=== PATIENT | male | born 1960 | race Caucasian/White ===

== ENCOUNTER → 2017-09-14 12:36 | Outpatient (CLI) | payer MEDICARE, SELFPAY ==
--- NOTE | 2017-09-14 12:40 | CDU_ITS ---
Reason For Study: carotid stenosis Rt. Velocities/BP Lt. Velocities/BP Prox CCA 101/24.0 cm/sec. Prox CCA 114/25.2 cm/sec. Mid CCA 79.2/23.5 cm/sec. Mid CCA 79.7/19.3 cm/sec. Dist CCA 79.7/19.9 cm/sec. Dist CCA 71.5/22.3 cm/sec. Prox ICA 61.6/12.3 cm/sec. Prox ICA 55.1/20.5 cm/sec. Mid ICA 80.3/28.7 cm/sec. Mid ICA 67.4/26.4 cm/sec. Dist ICA 75.0/32.8 cm/sec. Dist ICA 69.8/30.5 cm/sec. Rt. ICA/CCA = 1.0. Lt. ICA/CCA = .9. Prox ECA 128/20.4 cm/sec. Prox ECA 156/23.6 cm/sec. Rt. Vert. 56.3/15.2 cm/sec. Lt. Vert. 35.0/10.5 cm/sec. Right Extracranial There is intimal thickening but no significant atherosclerotic plaque noted in the right common carotid artery. There is intimal thickening but no significant atherosclerotic plaque noted in the right internal carotid artery. There is homogeneous, smooth atherosclerotic plaque noted in the right external carotid artery. Antegrade flow is noted in the right vertebral artery. Left Extracranial There is intimal thickening but no significant atherosclerotic plaque noted in the left common carotid artery. There is heterogeneous, irregular atherosclerotic plaque noted in the left internal carotid artery. There is intimal thickening but no significant atherosclerotic plaque noted in the left external carotid artery. Antegrade flow is noted in the left vertebral artery. Procedure Carotid Duplex [id number]. The exam was diagnostic. Exam performed in department. Interpretation Summary Post surgical changes right carotid bulb and internal carotid with <50% stenosis. Mild disease right external carotid Irregular calcific plague at the left carotid bulb and internal carotid with <50% stenosis. Patent and antegrade vertebrals bilaterally Ordering Physician: Hamlet Caballero Performed By: Leonard Castellanos RVT
== END ==
PROVIDERS: Family Provider Internal Medicine; PCP Internal Medicine; Visit Provider Surgery
DX: I65.23 Occlusion and stenosis of bilateral carotid arteries (principal)
CPT/HCPCS: 93880

== ENCOUNTER 2021-07-23 10:00 | Outpatient (RCR) | payer MEDICARE, SELFPAY ==
[2021-07-02 09:58] VITALS: BP 174/93; PULSE 87; TEMP 36.1
--- NOTE | 2021-07-02 12:40 | PCM.WC.HP ---
History of Present Illness Date of Service: 07/02/21 Chief Complaint: Left ankle ulcer History of Wound: The patient is a pleasant 61-year-old male who [facility] for an initial evaluation of a left lateral ankle ulcer. He also has a healing area of the left hip that he would like to be addressed. He has a past medical history significant for type 2 diabetes mellitus (insulin-dependent), severe peripheral arterial disease (status post left femoral artery angioplasty 07/2016), stroke, carotid stenosis status post right carotid endarterectomy, hepatitis C, and depression. He smokes approximately 2 packs/day. He states that this wound has been present on his left lateral ankle for approximately 1 year. He has not been performing any dressing changes to the wound. He washes the wound in the shower with his regular body wash. He sometimes covers the wound with a Band-Aid, though he has not recently done so. He has not had any recent drainage from the wound. At times he reports that the wound is very red and swollen and painful, though this has not been the case in recent months. The patient denies fever, chills, general malaise, or poor appetite. The patient has not had purulent/malodorous drainage from affected area. His last A1c was in May 2021, and was around 7%. Per his note from Dr. Caballero (vascular), the patient had arterial studies in July 2017 which revealed The right DP and PT index at rest 0.7 and 0.83 with biphasic DP and biphasic PT waveforms. The left lower extremity has indices of 1.05 and 0.82 for the DP and PT. The left DP is biphasic in the PT triphasic. He reports having small wounds of the left hip, which become very tender and painful. He has no active wounds of the left hip at this time. 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 Chronic ulcer of left ankle with fat layer exposed Depression Dermatitis Diabetes mellitus Diabetic ulcer of left ankle associated with diabetes mellitus due to underlying condition, with fat layer exposed Hepatitis C Hypoglycemia PAD (peripheral artery disease) Stroke Tobacco abuse Vasovagal syncope Home Medications aspirin 81 mg PO DAILY@0800 10/24/13 [History Last Taken Unknown] insulin glargine 40 units SC DAILY 10/24/13 [History Last Taken Unknown] lisinopril 2.5 mg PO DAILY 10/24/13 [History Last Taken Unknown] sildenafil 100 mg PO DAILY PRN 10/24/13 [History Last Taken Unknown] simvastatin 40 mg PO DAILY 10/24/13 [History Last Taken Unknown] omega-3 fatty acids-fish oil 1 ea PO DAILY 08/19/16 [History Last Taken Unknown] acetaminophen 650 mg PO Q6H PRN PRN tab 08/26/16 [Rx Last Taken Unknown] insulin aspart U-100 12 units SC TIDCM #0 08/26/16 [Rx Last Taken Unknown] triamcinolone acetonide 1 applic TOPICAL BID #15 g 07/02/21 [Rx Last Taken Unknown] Allergy/AdvReac Type Severity Reaction Status Date / Time No Known Allergies Allergy Verified 03/06/18 13:18 Social History (Updated 03/06/18 @ 14:[address] Hamlet Caballero MD) Smoking Status: Current every day smoker ROS Constitutional Constitutional: Denies chills, fever(s) or night sweats Eyes Eyes: Denies change in vision or double vision ENT HEENT: Denies lip swelling or tongue swelling Cardiovascular Cardiovascular: Reports claudication and cold extremities; Denies chest pain, leg edema or palpitations Respiratory/Chest Respiratory/Chest: Reports cough and shortness of breath with exertion; Denies shortness of breath at rest or wheezing Gastrointestinal Gastrointestinal: Denies diarrhea, nausea or vomiting Genitourinary Genitourinary: Denies dysuria or hematuria Musculoskeletal Musculoskeletal: Reports numbness and tingling; Denies abnormal gait, extremity pain or muscle weakness Integumentary Integumentary: Reports wounds; Denies rash Neurologic Neurologic: Denies abnormal gait, abnormal speech or focal weakness Endocrine Endocrinology: Denies cold intolerance, heat intolerance, polydipsia or polyuria Hematologic/Lymphatic Hematologic/Lymphatic: Denies easy bleeding or easy bruising Vital Signs Vital Signs Vital Signs: 07/02/21 09:58 Temperature 97.0 F L Temperature Source Temporal Pulse Rate 87 Blood Pressure 174/93 H Blood Pressure Mean 120 Blood Pressure Source Monitor Blood Pressure Position Sitting Blood Pressure Location Right Arm Physical Exam Const alert, no apparent distress and healthy appearing General Appearance: cooperative, comfortable and well kempt HEENT Head and Scalp: normocephalic and atraumatic Eyes EOMs intact bilaterally Neck supple and no JVD Resp normal respiratory effort, normal air movement and no use of accessory muscles Auscultation: clear to auscultation bilaterally; Negative for crackles, rales, rhonchi or wheezes Cardio regular rate and regular rhythm GI normal to inspection, nondistended, normoactive bowel sounds Extremity no joint enlargement, no calf tenderness and no pedal edema General Extremity: clubbing, cyanosis and pulses abnormal; Negative for edema Peripheral Pulses: Negative for dorsalis pedis pulses present Skin Wounds: wounds noted No malodorous Wound Narrative: Left lateral ankle ulcer with subcutaneous layer exposed. Moderate amount of slough and devitalized tissue present. No tunneling, undermining, or probing to bone. No purulent or malodorous drainage. No periulcer erythema or warmth. Cluster of dry, flaky skin on the left hip, with no open wounds/lesions. Mild erythema present. Mild tenderness to palpation. Neuro oriented x3, moves all extremities and no focal motor deficits Psych mental status grossly normal, cooperative and affect normal Debridement Note Debridement Note Wound debrided: Left lateral ankle Laterality: Left Type of Debridement: Excisional debridement Anesthesia Used: 4% Lidocaine Solution and Cetacaine Depth: in the subcutaneous layer Percentage of wound debrided: 100 Instrument Used: 3mm curette Tissue Removed: Slough and devitalized tissue Severity: Fat Layer Exposed Amount of bleeding with debridement: Mild Bleeding Controlled with: Pressure Patient tolerated procedure: Patient tolerated procedure well Post-Debridement Measurements and Additional Note: Post-Debridement Measurements/Treatment - Nurse 1 - General Ulcer Assessment Start: 07/02/21 09:58 Freq: Status: Active Protocol: JESSICA Activity Type Activity Date Activity User E-Sign Co-Sign Detail Recorded Client Recorded Date Recorded By Document 07/02/21 09:58 ANA LAURA [id number] 07/02/21 10:02 ANA LAURA 07/02/21 09:58 - Today's Visit Information Type of service Initial Visit Arrival Mode Ambulatory Patient Identification Verified (Name & Yes ) Finger Stick Blood Sugar(mg/dl) (if 176 indicated): Blood Sugar Stated by Patient Vital Signs Temperature (97.8 F-99.1 F) 97.0 F L Temperature Source Temporal Pulse Rate (60-100) 87 Pulse Location Monitor Blood Pressure (90/60-120/80) 174/93 H Blood Pressure Mean 120 Source Monitor Position Sitting Blood Pressure Location Right Arm History Since Last Visit- (Skip if this is Patient's initial visit) Have you changed medications since your No last visit? Any new allergies or adverse reactions No Had a fall/change in ADL's that may No increase risk of falls Signs or symptoms of abuse and/or No neglect since last visit Have you been in the hospital since your No last visit? Has dressing in place as prescribed No Has compression in place as prescribed N/A Has offloadiing in place as prescribed N/A Experienced any changes in pain level or No management Left Footwear Regular Shoe Right Footwear Regular Shoe Pain Scale: 0-10 Numeric Is Patient Pain Free? Yes MASHA - Nurse 1 - General Ulcer Measurement Start: 07/02/21 09:58 Freq: Status: Active Protocol: Activity Type Activity Date Activity User E-Sign Co-Sign Detail Recorded Client Recorded Date Recorded By Document 07/02/21 09:58 ANA LAURA [id number] 07/02/21 10:02 ANA LAURA 07/02/21 09:58 Wound Center Nurse 1 #1 Left Lateral Ankle -Current Size (cm) - Length 0.5 -Current Size (cm) - Width 0.8 -Current Size (cm) - Depth 0.1 -Total Square Cm 0.40 -Exudate Amt None Present -Wound Margin Distinct, Outline Attached -Granulation Amt Small (1-33%) -Granulation Quality [place] -Necrosis Amt None Present (0 %) -Texture (Kristi-wound Skin Appearance) Assessed, Scarring -Moisture (Kristi-wound Skin Appearance) Assessed,Dry/ Scaly -Color (Kristi-wound Skin Appearance) No Abnormality, Assessed -Temperature (Kristi-wound Skin No Abnormality Appearance) (Pt Warm) -Tenderness on Palpation (Kristi-wound No Skin Appearance) -Ulcer Cleansing Rinsed/ Irrigated with Saline -Foul Odor after Cleansing No -Anesthetic Used 5% Lidocaine Gel Right Calf (cm) 40 Right Ankle (cm) 23.2 Left Calf (cm) 39 Left Ankle (cm) 24 MASHA - Nurse 3 - General Ulcer D/C NN Start: 07/02/21 09:58 Freq: Status: Active Protocol: Activity Type Activity Date Activity User E-Sign Co-Sign Detail Recorded Client Recorded Date Recorded By Document 07/02/21 10:46 NOMAN [id number] 07/02/21 10:47 NOMAN 07/02/21 10:46 Wound Care Nurse 3 #1 Left Lateral Ankle -Ulcer Cleansing Rinsed/ Irrigated with Saline -Foul Odor after Cleansing No -Negative Pressure Wound Therapy N/A -Primary Dressing Applied Promogran Lyubov Matter -Primary Dressing Covered/Secured with Dry Gauze & Roll Gauze, Secured with Tape -Promogran Lyubov Matter 1 Right -Lotion applied to leg before No compression wrap -Tubular Bandage Single Layer -Size of Tubigrip Used Size E -Size E ($) 1 Left -Lotion applied to leg before No compression wrap -Tubular Bandage Single Layer -Size of Tubigrip Used Size E -Size E ($) 1 Pain Scale: 0-10 Numeric Is Patient Pain Free? 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 (2) Chronic ulcer of left ankle with fat layer exposed: CODE(S): L97.322 - Non-pressure chronic ulcer of left ankle with fat layer exposed (3) Tobacco abuse: CODE(S): Z72.0 - Tobacco use (4) PAD (peripheral artery disease): CODE(S): I73.9 - Peripheral vascular disease, unspecified (5) Diabetic ulcer of left ankle associated with diabetes mellitus due to underlying condition, with fat layer exposed: CODE(S): E08.622 - Diabetes mellitus due to underlying condition with other skin ulcer; L97.322 - Non-pressure chronic ulcer of left ankle with fat layer exposed (6) Dermatitis: CODE(S): L30.9 - Dermatitis, unspecified PLAN: Debridement performed today in clinic as annotated above. Lyubov applied. Single Tubigrip applied. At home wound-care instructions: Change dressing once daily or more frequently as needed due to contamination. Wash wounds daily with antibacterial soap and water, rinse and dry thoroughly before each dressing change. Compression: Single Tubigrip; aggressive compression will not be used due to patient's PAD Off-loading: The patient was instructed to avoid pressure and friction on the affected areas. Reposition every 2 hours at minimum. Avoid prolonged standing and/or dangling of legs. When seated, feet should be elevated at chest level. Frequent ambulation is encouraged. Diet: Patient encouraged to increase protein intake while taking caution to avoid high carbohydrate and/or sugar intake. Smoking: The risks of smoking and benefits of smoking cessation were discussed with the patient today. The patient is encouraged to quit smoking. If smoking cessation aids are desired, the patient should contact their primary care provider to discuss appropriate options. Labs/cultures/imaging: Cultures ordered and collected today. Routine baseline lab work ordered. Vascular studies ordered. Follow-up: Return to clinic in 1 week for re-evaluation. Return sooner or report to the emergency room should symptoms worsen, or new symptoms arise. Patient has appointment with vascular doctor at [facility] scheduled for July. Note: [employer] Ordering speech recognition linecasting machine keyboard operator software was used to create portions of this document. Sound-alike and misspelled words, as well as other linecasting machine keyboard operator errors may be contained in the documentation.
[2021-07-02 13:59] LABS: Absolute Lymphocyte Count 2.04 X10^3/uL (0.83-4.51); Absolute Neutrophil Count 4.3 X10^3/uL (2.0-7.7); Basophil# 0.04 X10^3/uL; Basophil% 0.6 % (0-1); Eosinophil# 0.19 X10^3/uL; Eosinophils% 2.7 % (0-5); Erythrocyte Sedimentation Rate 7 mm/hr (0-20); Hematocrit 45.9 % (40-54); Hemoglobin 15.5 g/dL (13.0-16.5); Lymphocyte # 2.04 X10^3/ul (0.83-4.51); Lymphocyte % 28.5 % (19-41); Mean Corp Hgb Conc 33.8 g/dL (32-36); Mean Corpuscular Hgb 28.8 pg (27.0-32.0); Mean Corpuscular Volume 85.3 fL (80-94); Mean Platelet Vol. 11.2 fl (6.2-12.0); Monocyte# 0.51 X10^3/uL; Monocyte% 7.1 % (0-10); NRBC Flagged by Analyzer 0 % (0-5); Neutrophil # 4.34 X10^3/uL (2.7-7.7); Neutrophil % 60.7 % (47-70); Platelet Count 158 K/mm3 (150-450); RBC Distribution Width CV 13.3 % (11.6-14.6); RBC Distribution Width SD 41.2 fl (35.1-43.9); Red Blood Count 5.38 M/mm3 (4.6-6.2); White Blood Count 7.2 K/mm3 (4.4-11.0)
[2021-07-02 14:36] LABS: ALB/GLOB Ratio 0.9 RATIO (0.9-2.4); AST(SGOT) 23 U/L (15-37); Alanine Aminotransfer ALT/SGPT 30 U/L (16-61); Albumin, Serum 3.6 g/dL (3.2-5.0); Alkaline Phosphatase 92 U/L (45-117); Anion Gap 4 (5-15); BUN 17 mg/dL (7-18); Calcium,Total 8.7 mg/dL (8.5-10.1); Chloride 104 mmol/L (98-107); Creatinine, Serum 1.06 mg/dL (0.70-1.30); EST Glomerular Filtration Rate 76 mL/min (>60); Est Glom Filt Rate - Afr Amer 92 mL/min (>60); Glucose 234 mg/dL (74-106); Potassium 4.8 mmol/L (3.5-5.1); Prealbumin 23.6 mg/dL (20.0-40.0); Protein, Total 7.6 g/dL (6.4-8.2); Sodium Level 135 mmol/L (136-145)
[2021-07-09 09:29] VITALS: BP 180/75; PULSE 90; TEMP 35.8
--- NOTE | 2021-07-09 09:55 | PN.PCM_ITS ---
History of Present Illness Date of Service: 07/09/21 Chief Complaint: Left ankle ulcer History of Wound: The patient is a pleasant 61-year-old male who [facility] for an initial evaluation of a left lateral ankle ulcer. He also has a healing area of the left hip that he would like to be addressed. He has a past medical history significant for type 2 diab etes mellitus (insulin-dependent), severe peripheral arterial disease (status post left femoral artery angioplasty 07/2016), stroke, carotid stenosis status post right carotid endarterectomy, hepatitis C, and depression. He smokes approximately 2 packs/day. He states that this wound has been present on his left lateral ankle for approximately 1 year. He has not been performing any dressing changes to the wound. He washes the wound in the shower with his regular body wash. He sometimes covers the wound with a Band-Aid, though he has not recently done so. He has not had any recent drainage from the wound. At times he reports that the wound is very red and swollen and painful, though this has not been the case in recent months. The patient denies fever, chills, general malaise, or poor appetite. The patient has not had purulent/malodorous drainage from affected area. His last A1c was in May 2021, and was around 7%. Per his note from Dr. Caballero (vascular), the patient had arterial studies in July 2017 which revealed The right DP and PT index at rest 0.7 and 0.83 with bipha sic DP and biphasic PT waveforms. The left lower extremity has indices of 1.05 and 0.82 for the DP and PT. The left DP is biphasic in the PT triphasic. He reports having small wounds of the left hip, which become very tender and painful. He has no active wounds of the left hip at this time. Progress of Wound: His left ankle ulcer is improved in size and appearance today. He has increased tenderness today, which I suspect is due to the significant amount of dryness of his ulcer. He has not been compliant with daily dressing changes. It has been 2 days since his dressing has been changed. The patient denies fever, chills, general malaise, or poor appetite. The patient has not had increased redness, swelling, or purulent/malodorous drainage from affected area. He states his left hip rash has improved. Objective Data Objective Data Vital Signs: Vital Signs Temp Pulse BP 96.4 F L 90 180/75 H 07/09/21 09:29 07/09/21 09:29 07/09/21 09:29 Lab / Micro Data Result Diagrams: 07/02/21 11:55 07/02/21 11:55 Micro: Microbiology 07/02/21 10:25 Wound Abcess - Ankle Gram Stain - Final 07/02/21 10:25 Wound Abcess - Ankle Wound Culture - Final No growth aerobically. 07/02/21 10:25 Wound Abcess - Ankle Anaerobic Culture - Final No growth in 5 days. Charges/Coding Procedures Integumentary [id number]: [id number] Rayne subq tissue 20 sq cm/< Physical Exam Const alert, no apparent distress and healthy appearing General Appearance: cooperative and well kempt HEENT Head and Scalp: normocephalic and atraumatic Resp normal respiratory effort, normal air movement and no use of accessory muscles Extremity no joint enlargement, no calf tenderness and no pedal edema General Extremity: clubbing, cyanosis and pulses abnormal; Negative for edema Peripheral Pulses: Negative for dorsalis pedis pulses present Skin Wounds: wounds noted No malodorous Wound Narrative: Left lateral ankle ulcer with subcutaneous layer exposed. Moderate amount of slough and devitalized tissue present. No tunneling, undermining, or probing to bone. No purulent or malodorous drainage. No periulcer erythema or warmth. Neuro oriented x3, moves all extremities and no focal motor deficits Psych mental status grossly normal, cooperative and affect normal Debridement Note Debridement Note Wound debrided: Left ankle ulcer Laterality: Left Type of Debridement: Excisional debridement Anesthesia Used: 5% Lidocaine Gel and Cetacaine Depth: in the subcutaneous layer Percentage of wound debrided: 100 Instrument Used: 3mm curette Tissue Removed: Slough and devitalized tissue Severity: Fat Layer Exposed Amount of bleeding with debridement: Mild Bleeding Controlled with: Pressure Patient tolerated procedure: Patient tolerated procedure well Post-Debridement Measurements and Additional Note: Post-Debridement Measurem ents/Treatment MASHA - Nurse 1 - General Ulcer Assessment Start: 07/02/21 09:58 Freq: Status: Active Protocol: JESSICA Activity Type Activity Date Activity User E-Sign Co-Sign Detail Recorded Client Recorded Date Recorded By Document 07/02/21 09:58 ANA LAURA [id number] 07/02/21 10:02 KR Document 07/09/21 09:29 ANA LAURA [id number] 07/09/21 09:30 KR 07/02/21 07/09/21 09:58 09:29 - Today's Visit Information Type of service Initial Visit Follow-up Visit (Physician/[facility] [employer] ) Arrival Mode Ambulatory Ambulatory Patient Identification Verified (Name & Yes Yes ) Finger Stick Blood Sugar(mg/dl) (if 176 indicated): Blood Sugar Stated by Patient Vital Signs Temperature (97.8 F-99.1 F) 97.0 F L 96.4 F L Temperature Source Temporal Temporal Pulse Rate (60-100) 87 90 Pulse Location Monitor Monitor Blood Pressure (90/60-120/80) 174/93 H 180/75 H Blood Pressure Mean (mm Hg) 120 110 Source Monitor Monitor Position Sitting Sitting Blood Pressure Location Right Arm Right Arm History Since Last Visit- (Skip if this is Patient's initial visit) Have you changed medications since your No No last visit? Any new allergies or adverse reactions No No Had a fall/change in ADL's that may No No increase risk of falls Signs or symptoms of abuse and/or No No neglect since last visit Have you been in the hospital since your No No last visit? Has dressing in place as prescribed No Yes Has compression in place as prescribed N/A Yes Has offloadiing in place as prescribed N/A N/A Experienced any changes in pain level or No No management Left Footwear Regular Shoe Regular Shoe Right Footwear Regular Shoe Regular Shoe Pain Scale: 0-10 Numeric Is Patient Pain Free? Yes Yes - Nurse 1 - General Ulcer Measurement Start: 07/02/21 09:58 Freq: Status: Active Protocol: Activity Type Activity Date Activity User E-Sign Co-Sign Detail Recorded Client Recorded Date Recorded By Document 07/02/21 09:58 ANA LAURA [id number] 07/02/21 10:02 KR Document 07/09/21 09:29 ANA LAURA [id number] 07/09/21 09:30 KR 07/02/21 07/09/21 09:58 09:29 Wound Center Nurse 1 #1 Left Lateral Ankle -Current Size (cm) - Length 0.5 0.4 -Current Size (cm) - Width 0.8 0.5 -Current Size (cm) - Depth 0.1 0.1 -Total Square Cm 0.40 0.20 -Exudate Amt None Present None Present -Wound Margin Distinct, Distinct, Outline Outline Attached Attached -Granulation Amt Small (1-33%) Small (1-33%) -Granulation Quality [place] Red -Necrosis Amt None Present (0 None Present (0 %) %) -Texture (Kristi-wound Skin Appearance) Assessed, Assessed, Scarring Scarring -Moisture (Kristi-wound Skin Appearance) Assessed,Dry/ Assessed,Dry/ Scaly Scaly -Color (Kristi-wound Skin Appearance) No Abnormality, No Abnormality, Assessed Assessed -Temperature (Kristi-wound Skin No Abnormality No Abnormality Appearance) (Pt Warm) (Pt Warm) -Tenderness on Palpation (Kristi-wound No No Skin Appearance) -Ulcer Cleansing Rinsed/ Rinsed/ Irrigated with Irrigated with Saline Saline -Foul Odor after Cleansing No No -Anesthetic Used 5% Lidocaine 5% Lidocaine Gel Gel Right Calf (cm) 40 Right Ankle (cm) 23.2 Left Calf (cm) 39 38.5 Left Ankle (cm) 24 24 WC - Nurse 2 - General Ulcer CM Notes Start: 07/02/21 09:58 Freq: Status: Active Protocol: Activity Type Activity Date Activity User E-Sign Co-Sign Detail Recorded Client Recorded Date Recorded By Document 07/02/21 12:52 RANDELL [id number] 07/02/21 12:54 PL 07/02/21 12:52 Wound Center Nurse 2 #1 Left Lateral Ankle -Time 10:20 -Correct Patient Yes -Correct Side, Site, Position Yes -Correct Procedure Yes -Procedure Performed Yes -Type of Procedure Debridement -Clinical Debridement Subcutaneous -Tissue Removed Subcutaneous -Post Debridement (cm) - Length 0.8 -Post Debridement (cm) - Width 0.9 -Post Debridement (cm) - Depth 0.1 -Total Square (Post) (cm) 0.72 -Area of Debridement (cm) - Length 0.8 -Area of Debridement (cm) - Width 0.9 -Total Square (Area) (cm) 0.72 -Tunneling No -Undermining/Tunneling No -Circular Undermining No -Wound/Ulcer Outcome Not Healed -Ulcer Cleansing Rinsed/ Irrigated with Saline -Foul Odor after Cleansing No -Bioengineered Tissue No -Bleeding Controlled with Pressure -Treatment Response Procedure Tolerated Well -Debridement - Subq, 1st 20sq cm Yes Pain Scale: 0-10 Numeric Is Patient Pain Free? Yes WC - Nurse 3 - General Ulcer D/C NN Start: 07/02/21 09:58 Freq: Status: Active Protocol: Activity Type Activity Date Activity User E-Sign Co-Sign Detail Recorded Client Recorded Date Recorded By Document 07/02/21 10:46 NOMAN [id number] 07/02/21 10:47 NOMAN 07/02/21 10:46 Wound Care Nurse 3 #1 Left Lateral Ankle -Ulcer Cleansing Rinsed/ Irrigated with Saline -Foul Odor after Cleansing No -Negative Pressure Wound Therapy N/A -Primary Dressing Applied Promogran Lyubov Matter -Primary Dressing Covered/Secured with Dry Gauze & Roll Gauze, Secured with Tape -Promogran Lyubov Matter 1 Right -Lotion applied to leg before No compression wrap -Tubular Bandage Single Layer -Size of Tubigrip Used Size E -Size E ($) 1 Left -Lotion applied to leg before No compression wrap -Tubular Bandage Single Layer -Size of Tubigrip Used Size E -Size E ($) 1 Pain Scale: 0-10 Numeric Is Patient Pain Free? 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 of ankle (2) Chronic ulcer of left ankle with fat layer exposed: CODE(S): L97.322 - Non-pressure chronic ulcer of left ankle with fat layer exposed (3) Tobacco abuse: CODE(S): Z72.0 - Tobacco use (4) PAD (peripheral artery disease): CODE(S): I73.9 - Peripheral vascular disease, unspecified (5) Diabetic ulcer of left ankle associated with diabetes mellitus due to underlying condition, with fat layer exposed: CODE(S): E08.622 - Diabetes mellitus due to underlying condition with other skin ulcer; L97.322 - Non-pressure chronic ulcer of left ankle with fat layer exposed (6) Dermatitis: CODE(S): L30.9 - Dermatitis, unspecified PLAN: Debridement performed today in clinic as annotated above. Lyubov applied. Single Tubigrip applied. At home wound-care instructions: Change lightly moistened Lyubov dressing once daily or more frequently as needed due to contamination. Wash wounds daily with antibacterial soap and water, rinse and dry thoroughly before each dressing change. Keep Lyubov dressing moist with saline to avoid over drying. Compression: Single Tubigrip; aggressive compression will not be used due to patient's PAD Off-loading: The patient was instructed to avoid pressure and friction on the affected areas. Reposition every 2 hours at minimum. Avoid prolonged standing and/or dangling of legs. When seated, feet should be elevated at chest level. Short, frequent periods of ambulation encouraged. Diet: Patient encouraged to increase protein intake while taking caution to avoid high carbohydrate and/or sugar intake. Smoking: The risks of smoking and benefits of smoking cessation were discussed with the patient today. The patient is encouraged to quit smoking. If smoking cessation aids are desired, the patient should contact their primary care provider to discuss appropriate options. Labs/cultures/imaging: Cultures from 07/02/2021 were negative. CBC, ESR, prealbumin were unremarkable. CMP was significant for elevated glucose of 234. Patient has vascular studies scheduled for July 21. Follow-up: Return to clinic in 1 week for re-evaluation. Return sooner or report to the emergency room should symptoms worsen, or new symptoms arise. Patient has appointment with vascular doctor at [facility] scheduled for July. Note: [employer] speech recognition hot top liner helper software was used to create portions of this document. Sound-alike and misspelled words, as well as other hot top liner helper errors may be contained in the documentation.
[2021-07-16 10:09] VITALS: BP 154/76; PULSE 77; TEMP 36
--- NOTE | 2021-07-16 13:25 | PCM.WC.PN ---
History of Present Illness Date of Service: 07/16/21 Chief Complaint: Left ankle ulcer History of Wound: The patient is a pleasant 61-year-old male who [facility]) for an initial evaluation of a left lateral ankle ulcer. He also has a healing area of the left hip that he would like to be addressed. He has a past medical history significant for type 2 diabetes mellitus (insulin-dependent), severe peripheral arterial disease (status post left femoral artery angioplasty 07/2016), stroke, carotid stenosis status post right carotid endarterectomy, hepatitis C, and depression. He smokes approximately 2 packs/day. He states that this wound has been present on his left lateral ankle for approximately 1 year. He has not been performing any dressing changes to the wound. He washes the wound in the shower with his regular body wash. He sometimes covers the wound with a Band-Aid, though he has not recently done so. He has not had any recent drainage from the wound. At times he reports that the wound is very red and swollen and painful, though this has not been the case in recent months. The patient denies fever, chills, general malaise, or poor appetite. The patient has not had purulent/malodorous drainage from affected area. His last A1c was in May 2021, and was around 7%. Per his note from Dr. Caballero (vascular), the patient had arterial studies in July 2017 which revealed The right DP and PT index at rest 0.7 and 0.83 with biphasic DP and biphasic PT waveforms. The left lower extremity has indices of 1.05 and 0.82 for the DP and PT. The left DP is biphasic in the PT triphasic. He reports having small wounds of the left hip, which become very tender and painful. He has no active wounds of the left hip at this time. Progress of Wound: His left ankle ulcer is improved in size. He continues to have increased tenderness of his ulcer. The ulcer is again very dry today. He reports compliance with daily Lyubov dressing changes. The patient denies fever, chills, general malaise, or poor appetite. The patient has not had increased redness, swelling, or purulent/malodorous drainage from affected area. Objective Data Objective Data Vital Signs: Vital Signs Temp Pulse BP 96.8 F L 77 154/76 H 07/16/21 10:09 07/16/21 10:09 07/16/21 10:09 Lab / Micro Data Result Diagrams: 07/02/21 11:55 07/02/21 11:55 Micro: Microbiology 07/02/21 10:25 Wound Abcess - Ankle Gram Stain - Final 07/02/21 10:25 Wound Abcess - Ankle Wound Culture - Final No growth aerobically. 07/02/21 10:25 Wound Abcess - Ankle Anaerobic Culture - Final No growth in 5 days. Charges/Coding Procedures Integumentary [id number]: [id number] Rayne subq tissue 20 sq cm/< Physical Exam Const alert, no apparent distress and healthy appearing General Appearance: cooperative and well kempt HEENT Head and Scalp: normocephalic and atraumatic Resp normal respiratory effort, normal air movement and no use of accessory muscles Extremity no joint enlargement, no calf tenderness and no pedal edema General Extremity: clubbing, cyanosis and pulses abnormal; Negative for edema Peripheral Pulses: Negative for dorsalis pedis pulses present Skin Wounds: wounds noted No malodorous Wound Narrative: Left lateral ankle ulcer with subcutaneous layer exposed. Moderate amount of slough and devitalized tissue present. No tunneling, undermining, or probing to bone. No purulent or malodorous drainage. Mild periulcer erythema. No periulcer warmth Neuro oriented x3, moves all extremities and no focal motor deficits Psych mental status grossly normal, cooperative and affect normal Debridement Note Debridement Note Wound debrided: Left ankle Laterality: Left Type of Debridement: Excisional debridement Anesthesia Used: 5% Lidocaine Gel and Cetacaine Depth: in the subcutaneous layer Percentage of wound debrided: 90 Instrument Used: 3mm curette Tissue Removed: Slough and devitalized tissue Severity: Fat Layer Exposed Amount of bleeding with debridement: Mild Bleeding Controlled with: Pressure Patient tolerated procedure: Patient did not tolerate procedure well Post-Debridement Measurements and Additional Note: Post-Debridement Measurements/Treatment WC - Nurse 1 - General Ulcer Assessment Start: 07/02/21 09:58 Freq: Status: Active Protocol: JESSICA Activity Type Activity Date Activity User E-Sign Co-Sign Detail Recorded Client Recorded Date Recorded By Document 07/02/21 09:58 KR [id number] 07/02/21 10:02 KR Document 07/09/21 09:29 KR [id number] 07/09/21 09:30 KR Document 07/16/21 10:09 KR [id number] 07/16/21 10:13 KR 07/02/21 07/09/21 07/16/21 09:58 09:29 10:09 - Today's Visit Information Type of service Initial Visit Follow-up Visit Follow-up Visit (Physician/FUEL CELL DESIGNER (Physician/FUEL CELL DESIGNER ) ) Arrival Mode Ambulatory Ambulatory Ambulatory Patient Identification Verified (Name & Yes Yes Yes ) Finger Stick Blood Sugar(mg/dl) (if 176 indicated): Blood Sugar Stated by Patient Vital Signs Temperature (97.8 F-99.1 F) 97.0 F L 96.4 F L 96.8 F L Temperature Source Temporal Temporal Temporal Pulse Rate (60-100) 87 90 77 Pulse Location Monitor Monitor Monitor Blood Pressure (90/60-120/80) 174/93 H 180/75 H 154/76 H Blood Pressure Mean (mm Hg) 120 110 102 Source Monitor Monitor Monitor Position Sitting Sitting Semi-Fowlers Blood Pressure Location Right Arm Right Arm Left Arm History Since Last Visit- (Skip if this is Patient's initial visit) Have you changed medications since your No No No last visit? Any new allergies or adverse reactions No No No Had a fall/change in ADL's that may No No No increase risk of falls Signs or symptoms of abuse and/or No No No neglect since last visit Have you been in the hospital since your No No No last visit? Has dressing in place as prescribed No Yes Yes Has compression in place as prescribed N/A Yes Yes Has offloadiing in place as prescribed N/A N/A N/A Experienced any changes in pain level or No No No management Left Footwear Regular Shoe Regular Shoe Regular Shoe Right Footwear Regular Shoe Regular Shoe Regular Shoe Pain Scale: 0-10 Numeric Is Patient Pain Free? Yes Yes Yes - Nurse 1 - General Ulcer Measurement Start: 07/02/21 09:58 Freq: Status: Active Protocol: Activity Type Activity Date Activity User E-Sign Co-Sign Detail Recorded Client Recorded Date Recorded By Document 07/02/21 09:58 ANA LAURA [id number] 07/02/21 10:02 KR Document 07/09/21 09:29 [id number] 07/09/21 09:30 KR Document 07/16/21 10:09 [id number] 07/16/21 10:13 KR 07/02/21 07/09/21 07/16/21 09:58 09:29 10:09 Wound Center Nurse 1 #1 Left Lateral Ankle -Current Size (cm) - Length 0.5 0.4 0.4 -Current Size (cm) - Width 0.8 0.5 0.3 -Current Size (cm) - Depth 0.1 0.1 0.1 -Total Square Cm 0.40 0.20 0.12 -Exudate Amt None Present None Present None Present -Wound Margin Distinct, Distinct, Distinct, Outline Outline Outline Attached Attached Attached -Granulation Amt Small (1-33%) Small (1-33%) None Present (0 %) -Granulation Quality [place] Red -Necrosis Amt None Present (0 None Present (0 None Present (0 %) %) %) -Texture (Kristi-wound Skin Appearance) Assessed, Assessed, Assessed, Scarring Scarring Scarring -Moisture (Kristi-wound Skin Appearance) Assessed,Dry/ Assessed,Dry/ No Abnormality, Scaly Scaly Assessed -Color (Kristi-wound Skin Appearance) No Abnormality, No Abnormality, No Abnormality, Assessed Assessed Assessed -Temperature (Kristi-wound Skin No Abnormality No Abnormality No Abnormality Appearance) (Pt Warm) (Pt Warm) (Pt Warm) -Tenderness on Palpation (Kristi-wound No No No Skin Appearance) -Ulcer Cleansing Rinsed/ Rinsed/ Rinsed/ Irrigated with Irrigated with Irrigated with Saline Saline Saline -Foul Odor after Cleansing No No No -Anesthetic Used 5% Lidocaine 5% Lidocaine 5% Lidocaine Gel Gel Gel Right Calf (cm) 40 Right Ankle (cm) 23.2 Left Calf (cm) 39 38.5 Left Ankle (cm) 24 24 WC - Nurse 2 - General Ulcer CM Notes Start: 07/02/21 09:58 Freq: Status: Active Protocol: Activity Type Activity Date Activity User E-Sign Co-Sign Detail Recorded Client Recorded Date Recorded By Document 07/02/21 12:52 PL [id number] 07/02/21 12:54 PL Document 07/09/21 09:58 PL Desktop 07/09/21 09:59 PL Document 07/16/21 12:27 PL [id number] 07/16/21 12:29 PL 07/02/21 07/09/21 07/16/21 12:52 09:58 12:27 Wound Center Nurse 2 #1 Left Lateral Ankle -Time 10:20 09:42 10:20 -Correct Patient Yes Yes Yes -Correct Side, Site, Position Yes Yes Yes -Correct Procedure Yes Yes Yes -Procedure Performed Yes Yes -Type of Procedure Debridement Debridement -Clinical Debridement Subcutaneous Subcutaneous Subcutaneous -Tissue Removed Subcutaneous Subcutaneous Subcutaneous -Post Debridement (cm) - Length 0.8 0.6 0.4 -Post Debridement (cm) - Width 0.9 0.7 0.3 -Post Debridement (cm) - Depth 0.1 0.1 0.1 -Total Square (Post) (cm) 0.72 0.42 0.12 -Area of Debridement (cm) - Length 0.8 0.6 0.4 -Area of Debridement (cm) - Width 0.9 0.7 0.3 -Total Square (Area) (cm) 0.72 0.42 0.12 -Tunneling No No No -Undermining/Tunneling No No No -Circular Undermining No No No -Wound/Ulcer Outcome Not Healed Not Healed Not Healed -Ulcer Cleansing Rinsed/ Rinsed/ Rinsed/ Irrigated with Irrigated with Irrigated with Saline Saline Saline -Foul Odor after Cleansing No No No -Bioengineered Tissue No No No -Bleeding Controlled with Pressure Pressure Pressure -Treatment Response Procedure Procedure Procedure Tolerated Well Tolerated Well Tolerated Well -Debridement - Subq, 1st 20sq cm Yes Yes Yes Pain Scale: 0-10 Numeric Is Patient Pain Free? Yes Yes Yes WC - Nurse 3 - General Ulcer D/C NN Start: 07/02/21 09:58 Freq: Status: Active Protocol: Activity Type Activity Date Activity User E-Sign Co-Sign Detail Recorded Client Recorded Date Recorded By Document 07/02/21 10:46 NOMAN [id number] 07/02/21 10:47 AK Document 07/09/21 10:03 AK [id number] 07/09/21 10:04 AK Document 07/16/21 10:34 KR [id number] 07/16/21 10:34 KR 07/02/21 07/09/21 07/16/21 10:46 10:03 10:34 Wound Care Nurse 3 #1 Left Lateral Ankle -Ulcer Cleansing Rinsed/ Rinsed/ Rinsed/ Irrigated with Irrigated with Irrigated with Saline Saline Saline -Foul Odor after Cleansing No No -Negative Pressure Wound Therapy N/A N/A -Primary Dressing Applied Promogran Promogran C Hydrogel ($) Lyubov Matter Lyubov Matter -Primary Dressing Covered/Secured with Dry Gauze & Dry Gauze & Dry Gauze,Dry Roll Gauze, Roll Gauze, Gauze & Roll Secured with Secured with Gauze,Secured Tape Tape with Tape -Promogran Lyubov Matter 1 1 Right -Lotion applied to leg before No compression wrap -Tubular Bandage Single Layer -Size of Tubigrip Used Size E -Size E ($) 1 Left -Lotion applied to leg before No compression wrap -Tubular Bandage Single Layer -Size of Tubigrip Used Size E -Size E ($) 1 Pain Scale: 0-10 Numeric Is Patient Pain Free? 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: CODE(S): I70.243 - Atherosclerosis of [place] arteries of left leg with ulceration of ankle (2) Chronic ulcer of left ankle with fat layer exposed: CODE(S): L97.322 - Non-pressure chronic ulcer of left ankle with fat layer exposed (3) Tobacco abuse: CODE(S): Z72.0 - Tobacco use (4) PAD (peripheral artery disease): CODE(S): I73.9 - Peripheral vascular disease, unspecified (5) Diabetic ulcer of left ankle associated with diabetes mellitus due to underlying condition, with fat layer exposed: CODE(S): E08.622 - Diabetes mellitus due to underlying condition with other skin ulcer; L97.322 - Non-pressure chronic ulcer of left ankle with fat layer exposed PLAN: Debridement performed today in clinic as annotated above. Hydrogel and gauze dressing applied. Single Tubigrip applied. Due to the patient's intolerance of debridement, a prescription for Santyl will be given today for enzymatic debridement. Patient was instructed to contact our office if this medication is not affordable. At home wound-care instructions: Perform daily dressing changes with Santyl (applied and a nickel thick layer) covered with gauze. Wash wounds daily with antibacterial soap and water, rinse and dry thoroughly before each dressing change. Compression: Single Tubigrip; aggressive compression will not be used due to patient's PAD Off-loading: The patient was instructed to avoid pressure and friction on the affected areas. Reposition every 2 hours at minimum. Avoid prolonged standing and/or dangling of legs. When seated, feet should be elevated at chest level. Short, frequent periods of ambulation encouraged. Diet: Patient encouraged to increase protein intake while taking caution to avoid high carbohydrate and/or sugar intake. Smoking: The risks of smoking and benefits of smoking cessation were discussed with the patient today. The patient is encouraged to quit smoking. If smoking cessation aids are desired, the patient should contact their primary care provider to discuss appropriate options. Labs/cultures/imaging: Cultures from 07/02/2021 were negative. CBC, ESR, prealbumin were unremarkable. CMP was significant for elevated glucose of 234. Patient has vascular studies scheduled for July 21. Follow-up: Return to clinic in 1 week for re-evaluation. Return sooner or report to the emergency room should symptoms worsen, or new symptoms arise. Patient has appointment with vascular doctor at [facility] scheduled for July. Note: [employer] speech recognition engineered wood designer software was used to create portions of this document. Sound-alike and misspelled words, as well as other engineered wood designer errors may be contained in the documentation.
--- NOTE | 2021-07-21 09:05 | ART_ITS ---
Reason For Study: Non healing wound Procedure A bilateral lower extremity continuous wave Doppler with analog waveform analysis,segmental pressures,and ankle brachial indexes without exercise. Left Segmental Pressures Left brachial= 138mmHg. Left calf = 80mmHg. Left posterior tibial artery = 87mmHg. Left dorsalis pedis artery = 84mmHg. Left digit = 41 mmHg. The left dorsalis pedis waveforms are monophasic. The left posterior tibial artery waveforms are monophasic. Right Segmental Pressures Right brachial= 151mmHg. Right thigh = 186mmHg. Right calf = 124mmHg. Right posterior tibial artery = 119mmHg. Right dorsalis pedis artery = 106mmHg. Right digit = 95 mmHg. The right dorsalis pedis waveforms are biphasic. The right posterior tibial artery waveforms are biphasic. Indices The right ankle brachial index by the dorsalis pedis is 0.70. The right ankle brachial index by the posterior tibial artery is 0.79. The right digital-brachial index is 0.63. The left ankle brachial index by the dorsalis pedis is 0.56. The left ankle brachial index by the posterior tibial artery is 0.58. The left digital-brachial index is 0.27. VL/Lower Ext Art Exam w/o Exercis Interpretation Summary Biphasic Doppler waveforms are noted at ankle level on the right. Monophasic Do ppler waveforms are noted at ankle level on the left. Pulse-volume recordings appear diminished at ankle and digital levels bilaterally. The resting right ankle-brachial index is mildly diminished . The resting left ankle-brachial index is moderately diminished. The right digital-brachial index is mildly diminished. The left digital-brachial index is moderately to severely diminishe d. There is evidence of mild arterial occlusive disease at ankle and digital level s on the right. There is evidence of [id number] arterial occlusive disease at ankle and digit al levels on the left. Ordering Physician: Divya Louis Referring Physician: Sylvia Aleman Performed By: Shy Gifford RVT
--- NOTE | 2021-07-21 09:05 | VDLE_ITS ---
Reason For Study: Non healing wound RIGHT LEFT CFV is compressible, spontaneous, phasic, CFV is compressible, spontaneous, phasic, competent and demonstrates normal competent, and demonstrates normal augmentation. augmentation. FV is compressible, spontaneous, phasic, FV is compressible, spontaneous, phasic, competent and demonstrates normal competent and demonstrates normal augmentation. augmentation. POP V is compressible, spontaneous, phasic, POP V is compressible, spontaneous, phasic, competent and demonstrates normal competent and demonstrates normal augmentation. augmentation. T/P Trunk is compressible. T/P Trunk is compressible. PTV is compressible. PTV is compressible. RT PerV is compressible. LT PerV is compressible. SFJ is competent and measures 0.50 x 0.51 cm. SFJ is competent and measures 0.53 x 0.51 cm. GSV proximal thigh measures 0.19 x 0.18 cm. GSV proximal thigh measures 0.18 x 0.18 cm. GSV at knee measures 0.29 x 0.32 cm. GSV at knee measures 0.21 x 0.20 cm. GSV is competent throughout. GSV is competent throughout. SSV at junction is competent and measures SSV at junction is competent and measures 0.12 x 0.11 cm. 0.17 x 0.16 cm. Procedure This is a venous duplex using B-mode, color flow and spectral Doppler. Exam performed in department. A preliminary report was called and/or faxed to . VL/Venous Duplex US - [place] Extrem Interpretation Summary Deep veins of the lower extremities are bilaterally patent and compressible seg mentally. There is no evidence of deep vein thrombosis on either side. Valvular competence appears in tact within the proximal deep venous systems bilaterally. The great saphenous veins appear bila terally patent and compressible segmentally. Sapheno-femoral junctions are bilaterally competent . Valvular competence appears to be intact segmentally within the great saphenous veins bilaterally. Small saphenous veins are patent and competent bilaterally. Ordering Physician: Divya Louis Referring Physician: Sylvia Aleman Performed By: Shy Gifford RVT
--- NOTE | 2021-07-23 13:02 | PN.PCM_ITS ---
History of Present Illness Date of Service: 07/23/21 Chief Complaint: Left ankle ulcer History of Wound: The patient is a pleasant 61-year-old male who [facility] for an initial evaluation of a left lateral ankle ulcer. He also has a healing area of the left hip that he would like to be addressed. He has a past medical history significant for type 2 diab etes mellitus (insulin-dependent), severe peripheral arterial disease (status post left femoral artery angioplasty 07/2016), stroke, carotid stenosis status post right carotid endarterectomy, hepatitis C, and depression. He smokes approximately 2 packs/day. He states that this wound has been present on his left lateral ankle for approximately 1 year. He has not been performing any dressing changes to the wound. He washes the wound in the shower with his regular body wash. He sometimes covers the wound with a Band-Aid, though he has not recently done so. He has not had any recent drainage from the wound. At times he reports that the wound is very red and swollen and painful, though this has not been the case in recent months. The patient denies fever, chills, general malaise, or poor appetite. The patient has not had purulent/malodorous drainage from affected area. His last A1c was in May 2021, and was around 7%. Per his note from Dr. Caballero (vascular), the patient had arterial studies in July 2017 which revealed The right DP and PT index at rest 0.7 and 0.83 with bipha sic DP and biphasic PT waveforms. The left lower extremity has indices of 1.05 and 0.82 for the DP and PT. The left DP is biphasic in the PT triphasic. He reports having small wounds of the left hip, which become very tender and painful. He has no active wounds of the left hip at this time. Progress of Wound: His left ankle ulcer is covered in dry slough and devitalized tissue. Unable to assess for improvement in size/appearance. Patient refuses debridement today. He continues to have increased tenderness of his ulcer. He has not been compliant with wound care measures of cleansing the wound daily with antibacterial soap and water. He did not notify us that he was unable to obtain Santyl due to cost (he did not have coupon with him). The patient denies fever, chills, general malaise, or poor appetite. The patient has not had increased redness, swelling, or purulent/malodorous drainage from affected area. Bilateral lower extremity arterial studies from 07/21/2021 revealed mild arterial occlusive disease at the ankle and digital levels on the right, and moderate to severe arterial occlusive disease at the ankle and digital levels on the left. Venous studies of the bilateral lower extremities from 07/21/2021 were unremarkable. Objective Data Objective Data Vital Signs: Vital Signs Temp Pulse BP 96.8 F L 77 154/76 H 07/16/21 10:09 07/16/21 10:09 07/16/21 10:09 Lab / Micro Data Result Diagrams: 07/02/21 11:55 07/02/21 11:55 Micro: Microbiology 07/02/21 10:25 Wound Abcess - Ankle Gram Stain - Final 07/02/21 10:25 Wound Abcess - Ankle Wound Culture - Final No growth aerobically. 07/02/21 10:25 Wound Abcess - Ankle Anaerobic Culture - Final No growth in 5 days. Charges/Coding Visit Charges Office Visits / Consults: [id number] OV L3 Est Physical Exam Const alert, no apparent distress and healthy appearing HEENT Head and Scalp: normocephalic and atraumatic Resp normal respiratory effort, normal air movement and no use of accessory muscles Extremity no joint enlargement, no calf tenderness and no pedal edema General Extremity: clubbing, cyanosis and pulses abnormal; Negative for edema Peripheral Pulses: Negative for dorsalis pedis pulses present Skin Wounds: wounds noted No malodorous Wound Narrative: Left lateral ankle ulcer with large amount of slough and devitalized tissue present obstructing view of wound bed. No drainage noted. Mild periulcer erythema. No periulcer warmth Neuro oriented x3, moves all extremities and no focal motor deficits Psych mental status grossly normal, cooperative and affect normal Debridement Note Debridement Note No debridement was completed: No debridement was completed today Post-Debridement Measurements and Additional Note: Post-Debridement Measurements/Treatment WC - Nurse 1 - General Ulcer Assessment Start: 07/02/21 09:58 Freq: Status: Active Protocol: [email or web address] Activity Type Activity Date Activity User E-Sign Co-Sign Detail Recorded Client Recorded Date Recorded By Document 07/02/21 09:58 ANA LAURA [id number] 07/02/21 10:02 KR Document 07/09/21 09:29 KR [id number] 07/09/21 09:30 KR Document 07/16/21 10:09 KR [id number] 07/16/21 10:13 KR Document 07/23/21 10:01 KR [id number] 07/23/21 10:07 KR 07/02/21 07/09/21 07/16/21 09:58 09:29 10:09 - Today's Visit Information Type of service Initial Visit Follow-up Visit Follow-up Visit (Physician/FURNITURE DECALS INSPECTOR (Physician/FURNITURE DECALS INSPECTOR ) ) Arrival Mode Ambulatory Ambulatory Ambulatory Patient Identification Verified (Name & Yes Yes Yes ) Finger Stick Blood Sugar(mg/dl) (if 176 indicated): Blood Sugar Stated by Patient Vital Signs Temperature (97.8 F-99.1 F) 97.0 F L 96.4 F L 96.8 F L Temperature Source Temporal Temporal Temporal Pulse Rate (60-100) 87 90 77 Pulse Location Monitor Monitor Monitor Blood Pressure (90/60-120/80) 174/93 H 180/75 H 154/76 H Blood Pressure Mean (mm Hg) 120 110 102 Source Monitor Monitor Monitor Position Sitting Sitting Semi-Fowlers Blood Pressure Location Right Arm Right Arm Left Arm History Since Last Visit- (Skip if this is Patient's initial visit) Have you changed medications since your No No No last visit? Any new allergies or adverse reactions No No No Had a fall/change in ADL's that may No No No increase risk of falls Signs or symptoms of abuse and/or No No No neglect since last visit Have you been in the hospital since your No No No last visit? Has dressing in place as prescribed No Yes Yes Has compression in place as prescribed N/A Yes Yes Has offloadiing in place as prescribed N/A N/A N/A Experienced any changes in pain level or No No No management Left Footwear Regular Shoe Regular Shoe Regular Shoe Right Footwear Regular Shoe Regular Shoe Regular Shoe Pain Scale: 0-10 Numeric Is Patient Pain Free? Yes Yes Yes 07/23/21 10:01 - Today's Visit Information Type of service Follow-up Visit (Physician/FURNITURE DECALS INSPECTOR ) Arrival Mode Ambulatory Patient Identification Verified (Name & Yes ) Finger Stick Blood Sugar(mg/dl) (if indicated): Blood Sugar Vital Signs Temperature (97.8 F-99.1 F) Temperature Source Temporal Pulse Rate (60-100) Pulse Location Monitor Blood Pressure (90/60-120/80) Blood Pressure Mean (mm Hg) Source Monitor Position Sitting Blood Pressure Location Left Arm History Since Last Visit- (Skip if this is Patient's initial visit) Have you changed medications since your No last visit? Any new allergies or adverse reactions No Had a fall/change in ADL's that may No increase risk of falls Signs or symptoms of abuse and/or No neglect since last visit Have you been in the hospital since your No last visit? Has dressing in place as prescribed Yes Has compression in place as prescribed N/A Has offloadiing in place as prescribed N/A Experienced any changes in pain level or No management Left Footwear Regular Shoe Right Footwear Regular Shoe Pain Scale: 0-10 Numeric Is Patient Pain Free? Yes WC - Nurse 1 - General Ulcer Measurement Start: 07/02/21 09:58 Freq: Status: Active Protocol: Activity Type Activity Date Activity User E-Sign Co-Sign Detail Recorded Client Recorded Date Recorded By Document 07/02/21 09:58 KR [id number] 07/02/21 10:02 KR Document 07/09/21 09:29 KR [id number] 07/09/21 09:30 KR Document 07/16/21 10:09 KR [id number] 07/16/21 10:13 KR Document 07/23/21 10:01 KR [id number] 07/23/21 10:07 KR 07/02/21 07/09/21 07/16/21 09:58 09:29 10:09 Wound Center Nurse 1 #1 Left Lateral Ankle -Current Size (cm) - Length 0.5 0.4 0.4 -Current Size (cm) - Width 0.8 0.5 0.3 -Current Size (cm) - Depth 0.1 0.1 0.1 -Total Square Cm 0.40 0.20 0.12 -Exudate Amt None Present None Present None Present -Wound Margin Distinct, Distinct, Distinct, Outline Outline Outline Attached Attached Attached -Granulation Amt Small (1-33%) Small (1-33%) None Present (0 %) -Granulation Quality [place] Red -Necrosis Amt None Present (0 None Present (0 None Present (0 %) %) %) -Texture (Kristi-wound Skin Appearance) Assessed, Assessed, Assessed, Scarring Scarring Scarring -Moisture (Kristi-wound Skin Appearance) Assessed,Dry/ Assessed,Dry/ No Abnormality, Scaly Scaly Assessed -Color (Kristi-wound Skin Appearance) No Abnormality, No Abnormality, No Abnorm ality, Assessed Assessed Assessed -Temperature (Kristi-wound Skin No Abnormality No Abnormality No Abnormality Appearance) (Pt Warm) (Pt Warm) (Pt Warm) -Tenderness on Palpation (Kristi-wound No No No Skin Appearance) -Ulcer Cleansing Rinsed/ Rinsed/ Rinsed/ Irrigated with Irrigated with Irrigated with Saline Saline Saline -Foul Odor after Cleansing No No No -Anesthetic Used 5% Lidocaine 5% Lidocaine 5% Lidocaine Gel Gel Gel Right Calf (cm) 40 Right Ankle (cm) 23.2 Left Calf (cm) 39 38.5 Left Ankle (cm) 24 24 07/23/21 10:01 Wound Center Nurse 1 #1 Left Lateral Ankle -Current Size (cm) - Length 0.1 -Current Size (cm) - Width 0.1 -Current Size (cm) - Depth 0.1 -Total Square Cm 0.01 -Exudate Amt None Present -Wound Margin Distinct, Outline Attached -Granulation Amt -Granulation Quality -Necrosis Amt None Present (0 %) -Texture (Kristi-wound Skin Appearance) Assessed, Scarring -Moisture (Kristi-wound Skin Appearance) No Abnormality, Assessed -Color (Kristi-wound Skin Appearance) No Abnormality, Assessed -Temperature (Kristi-wound Skin No Abnormality Appearance) (Pt Warm) -Tenderness on Palpation (Kristi-wound No Skin Appearance) -Ulcer Cleansing Rinsed/ Irrigated with Saline -Foul Odor after Cleansing No -Anesthetic Used 5% Lidocaine Gel Right Calf (cm) Right Ankle (cm) Left Calf (cm) Left Ankle (cm) WC - Nurse 2 - General Ulcer CM Notes Start: 07/02/21 09:58 Freq: Status: Active Protocol: Activity Type Activity Date Activity User E-Sign Co-Sign Detail Recorded Client Recorded Date Recorded By Document 07/02/21 12:52 PL [id number] 07/02/21 12:54 PL Document 07/09/21 09:58 PL Desktop 04/15/22 09:59 PL Document 07/16/21 12:27 PL [id number] 07/16/21 12:29 PL 07/02/21 07/09/21 07/16/21 12:52 09:58 12:27 Wound Center Nurse 2 #1 Left Lateral Ankle -Time 10:20 09:42 10:20 -Correct Patient Yes Yes Yes -Correct Side, Site, Position Yes Yes Yes -Correct Procedure Yes Yes Yes -Procedure Performed Yes Yes -Type of Procedure Debridement Debridement -Clinical Debridement Subcutaneous Subcutaneous Subcutaneous -Tissue Removed Subcutaneous Subcutaneous Subcutaneous -Post Debridement (cm) - Length 0.8 0.6 0.4 -Post Debridement (cm) - Width 0.9 0.7 0.3 -Post Debridement (cm) - Depth 0.1 0.1 0.1 -Total Square (Post) (cm) 0.72 0.42 0.12 -Area of Debridement (cm) - Length 0.8 0.6 0.4 -Area of Debridement (cm) - Width 0.9 0.7 0.3 -Total Square (Area) (cm) 0.72 0.42 0.12 -Tunneling No No No -Undermining/Tunneling No No No -Circular Undermining No No No -Wound/Ulcer Outcome Not Healed Not Healed Not Healed -Ulcer Cleansing Rinsed/ Rinsed/ Rinsed/ Irrigated with Irrigated with Irrigated with Saline Saline Saline -Foul Odor after Cleansing No No No -Bioengineered Tissue No No No -Bleeding Controlled with Pressure Pressure Pressure -Treatment Response Procedure Procedure Procedure Tolerated Well Tolerated Well Tolerated Well -Debridement - Subq, 1st 20sq cm Yes Yes Yes Pain Scale: 0-10 Numeric Is Patient Pain Free? Yes Yes Yes WC - Nurse 3 - General Ulcer D/C NN Start: 07/02/21 09:58 Freq: Status: Active Protocol: Activity Type Activity Date Activity User E-Sign Co-Sign Detail Recorded Client Recorded Date Recorded By Document 07/02/21 10:46 NOMAN [id number] 07/02/21 10:47 AK Document 07/09/21 10:03 AK [id number] 07/09/21 10:04 AK Document 07/16/21 10:34 KR [id number] 07/16/21 10:34 KR Document 07/23/21 11:33 KR [id number] 07/23/21 11:34 KR 07/02/21 07/09/21 07/16/21 10:46 10:03 10:34 Wound Care Nurse 3 #1 Left Lateral Ankle -Ulcer Cleansing Rinsed/ Rinsed/ Rinsed/ Irrigated with Irrigated with Irrigated with Saline Saline Saline -Foul Odor after Cleansing No No -Negative Pressure Wound Therapy N/A N/A -Primary Dressing Applied Promogran Promogran C Hydrogel ($) Lyubov Matter Lyubov Matter -Primary Dressing Covered/Secured with Dry Gauze & Dry Gauze & Dry Gauze,Dry Roll Gauze, Roll Gauze, Gauze & Roll Secured with Secured with Gauze,Secured Tape Tape with Tape -Promogran Lyubov Matter 1 1 Right -Lotion applied to leg before No compression wrap -Tubular Bandage Single Layer -Size of Tubigrip Used Size E -Size E ($) 1 Left -Lotion applied to leg before No compression wrap -Tubular Bandage Single Layer -Size of Tubigrip Used Size E -Size E ($) 1 Pain Scale: 0-10 Numeric Is Patient Pain Free? Yes No Yes WC - Visit Discharge Discharge Condition Stable Stable Stable Ambulatory Status Ambulatory Ambulatory Ambulatory Transportation Private Auto Private Auto Private Auto Medication Reconcilliation completed & Yes Yes provided to patient/care provider Clinical Summary of Care Provided Yes Yes 07/23/21 11:33 Wound Care Nurse 3 #1 Left Lateral Ankle -Ulcer Cleansing Rinsed/ Irrigated with Saline -Foul Odor after Cleansing -Negative Pressure Wound Therapy -Primary Dressing Applied -Primary Dressing Covered/Secured with Dry Gauze, Secured with Tape -Promogran Lyub[place] Matter Right -Lotion applied to leg before compression wrap -Tubular Bandage -Size of Tubigrip Used -Size E ($) Left -Lotion applied to leg before compression wrap -Tubular Bandage -Size of Tubigrip Used -Size E ($) Pain Scale: 0-10 Numeric Is Patient Pain Free? 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 of left leg with ulceration of ankle (2) Chronic ulcer of left ankle with fat layer exposed: CODE(S): L97.322 - Non-pressure chronic ulcer of left ankle with fat layer exposed (3) Tobacco abuse: CODE(S): Z72.0 - Tobacco use (4) PAD (peripheral artery disease): CODE(S): I73.9 - Peripheral vascular disease, unspecified (5) Diabetic ulcer of left ankle associated with diabetes mellitus due to underlying condition, with fat layer exposed: CODE(S): E08.622 - Diabetes mellitus due to underlying condition with other skin ulcer; L97.322 - Non-pressure chronic ulcer of left ankle with fat layer exposed PLAN: Patient refused debridement today. Gauze dressing applied for padding/protection of the ankle ulcer. Due to the patient's intolerance of debridement, a prescription for Santyl was given for enzymatic debridement. Patient was encouraged to use this medication, and was given another coupon to present to the pharmacy to lower the cost of this medication. At home wound-care instructions: Perform daily dressing changes with Santyl (applied and a nickel thick layer) covered with gauze. Wash wounds daily with antibacterial soap and water, rinse and dry thoroughly before each dressing change. If unable to obtain Santyl, I at minimum recommend covering the left ankle ulcer with gauze. Compression: None, due to patient's PAD. Off-loading: The patient was instructed to avoid pressure and friction on the affected areas. Reposition every 2 hours at minimum. Avoid prolonged standing and/or dangling of legs. When seated, feet should be elevated at chest level. Short, frequent periods of ambulation encouraged. Diet: Patient encouraged to increase protein intake while taking caution to avoid high carbohydrate and/or sugar intake. Smoking: The risks of smoking and benefits of smoking cessation were again discussed with the patient today. The patient is encouraged to quit smoking. If smoking cessation aids are desired, the patient should contact their primary care provider to discuss appropriate options. Labs/cultures/imaging: Cultures from 07/02/2021 were negative. CBC, ESR, prealbumin were unremarkable. CMP was significant for elevated glucose of 234. Vascular studies reviewed as annotated above; mild right PAD and moderate to severe left PAD. Follow-up: Return to clinic in 2 weeks for re-evaluation. Return sooner or report to the emergency room should symptoms worsen, or new symptoms arise. Patient has appointment with vascular doctor at [facility] scheduled for late July. He was given the option of scheduling with Dr. Caballero instead, given that Dr. Caballero has performed his previous vascular surgeries. Note: [employer] speech recognition covered buckle assembler software was used to create portions of this document. Sound-alike and misspelled words, as well as other covered buckle assembler errors may be contained in the documentation.
== END 2021-07-24 23:59 | disposition home or self-care (01) ==
LOC: WC 10:00
PROVIDERS: PCP Internal Medicine; Referring Provider Nurse Practitioner Family; Visit Provider Nurse Practitioner Family
DX: E11.622 Type 2 diabetes mellitus with other skin ulcer (principal); I70.243 Atherosclerosis of native arteries of left leg with ulceration of ankle; E08.622 Diabetes mellitus due to underlying condition with other skin ulcer; L97.322 Non-pressure chronic ulcer of left ankle with fat layer exposed; E11.620 Type 2 diabetes mellitus with diabetic dermatitis; I73.9 Peripheral vascular disease, unspecified; Z79.4 Long term (current) use of insulin; Z79.82 Long term (current) use of aspirin; F32.A Depression, unspecified; Z86.73 Personal history of transient ischemic attack (TIA), and cerebral infarction without residual deficits; F17.210 Nicotine dependence, cigarettes, uncomplicated; L30.9 Dermatitis, unspecified; T81.89XA Other complications of procedures, not elsewhere classified, initial encounter
CPT/HCPCS: 11042; 36415; 80053; 84134; 85025; 85652; 87070; 87075; 87205; 93923; 93970; 99213; G0463

== ENCOUNTER 2021-09-13 07:30 | Day surgery (SDC) | payer MEDICARE, SELFPAY ==
[2021-09-10 08:32] VITALS: BMI 34.0
[2021-09-13] VITALS (8 sets, daily range): BP systolic 118–139; BP diastolic 67–83; PULSE 56–77; RESP 14–21; TEMP 35.9; O2SAT 94–98
[2021-09-13 07:45] LABS: Hematocrit 46.1 % (40-54); Hemoglobin 15.3 g/dL (13.0-16.5); Mean Corp Hgb Conc 33.2 g/dL (32-36); Mean Corpuscular Hgb 28.7 pg (27.0-32.0); Mean Corpuscular Volume 86.3 fL (80-94); Mean Platelet Vol. 10.7 fl (6.2-12.0); Platelet Count 160 K/mm3 (150-450); RBC Distribution Width CV 13.3 % (11.6-14.6); RBC Distribution Width SD 41.8 fl (35.1-43.9); Red Blood Count 5.34 M/mm3 (4.6-6.2); White Blood Count 6.6 K/mm3 (4.4-11.0)
[2021-09-13 07:58] LABS: Anion Gap 5 (5-15); BUN 17 mg/dL (7-18); BUN/Creat Ratio 17.2 RATIO (10-20); Calcium,Total 8.8 mg/dL (8.5-10.1); Chloride 106 mmol/L (98-107); Creatinine, Serum 0.99 mg/dL (0.70-1.30); EST Glomerular Filtration Rate 82 mL/min (>60); Est Glom Filt Rate - Afr Amer 99 mL/min (>60); Estimated Creatinine Clearance 89.67 ml/min; Glucose 136 mg/dL (74-106); Potassium 4.4 mmol/L (3.5-5.1); Sodium Level 137 mmol/L (136-145)
--- NOTE | 2021-09-13 08:24 | HP.PCM_ITS ---
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 tab 08/26/16 [Rx Confirmed 08/16/21] insulin aspart U-100 12 units SC TIDCM #0 08/26/16 [Rx Confirmed 08/16/21] triamcinolone acetonide 1 applic TOPICAL BID #15 g 07/02/21 [Rx Confirmed 08/16/21] collagenase clostridium histo. [Santyl] 1 applic TOPICAL DAILY #30 g 07/16/21 [Rx Confirmed 08/16/21] PFSH Medical History? 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 S/P abdominoplasty S/P carotid endarterectomy Social History? Smoking Status:? Current every day smoker alcohol intake:? never HPI HPI HPI: MICHAEL MARIE, is a 61 M who presents to the office today for surgical consultation regarding peripheral arterial occlusive disease.? I had previously seen this gentleman on March 06, 2018.? Unfortunately the patient has a combination of neuropathic and ischemic lateral malleolar left lower extremity ulceration.? I assisted him with a right carotid enterectomy 2013.? Unfortunately for his legs we did do a atherectomy of his SFA but then placed a 8 x 200 mm prot?g? stent.? He also had a have angioplasty of the left peroneal.? He notes that the left foot goes cold and white when he sleeps.? When he gets any cold exposure the left foot is always more problematic My notes from that date reflect the following HPI: MICHAEL MARIE, is a 57 M who presents to the office today for surgical consultation regarding peripheral vascular occlusive disease.? The patient is referred by Dr. Joao Hinton and his primary care physician is .? The patient has right lower extremity vascular claudication more so than left lower extremity.? I have assisted him previously with a abdominal pelvic bilateral extremity arteriogram and left lower extremity superficial femoral artery angioplasty October 2013 DATE OF SERVICE: October 25, 2013 PREOPERATIVE DIAGNOSIS: Rest pain, left foot. POSTOPERATIVE DIAGNOSIS: Multisegmental peripheral vascular occlusive disease, bilateral lower extremities. PROCEDURES: Abdominopelvic bilateral lower extremity arteriogram, left superficial femoral artery LXM TurboHawk atherectomy, left superficial femoral artery 6 x 200 mm EverCross angioplasty, left superficial femoral artery 8 x 200 mm Protege stenting.? Left peroneal 3 x 80 mm NanoCross angioplasty. The patient has medical comorbidities including COPD with ongoing tobacco use at least with a rate of 1 pack per day.? Hyperlipidemia. On August 18, 2017 at the [facility] he had PVRs.? The right DP and PT index at rest 0.7 and 0.83 with biphasic DP and biphasic PT waveforms.? The left lower extremity has indices of 1.05 and 0.82 for the DP and PT.? The left DP is biphasic in the PT triphasic. The patient was evaluated by Dr. Joao Hinton for a right plantar callus.? Because of his peripheral vascular disease he is being referred for ongoing surgical evaluation. It is of additional note that he is 1 year status post a right carotid endarterectomy.? His carotid duplex exam of September 14, 2017 demonstrated widely patent postoperative changes of the right carotid and no hemodynamically significant disease bilaterally. He has no central neurologic complaints He has been seen by his primary care physician Dr Aleman and computed tomography technologist Dr Hinton and myself all of whom have vigorously encouraged the patient to stop his tobacco use.? The patient recognizes that he does not have a exercise to lerance.? He finds it difficult to breathe.? He denies every being told that he has COPD.? He denies that there is an absolute correlation between his tobacco use and his peripheral arterial disease In discussing findings with the patient is a it becomes apparent that he smokes in excess of 2 packs of cigarettes per day.? He has no interest in stopping.? He wakes up in the evening and will smoke throughout the night. 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 He is currently living a very sedentary lifestyle.? He does not make any attempt at purposeful exercise.? In the past he used to ride bicycle but he does not do that anymore.? He does not purposely extend himself and go on any walks. His comments today were that his feet look red when they are dependent.? He does not however describe rest pain. The patient is currently being referred by AMENA Barber regarding a left lateral ankle ulcer and a written copy of my surgical consult and recommendations will return to her.? Patient was seen at the wound care center.? He declined debridement.? It was recommended for him to use Santyl but my understanding is that this is too expensive. Bilateral lower extremity arterial studies from 07/21/2021 revealed mild arterial occlusive disease at the ankle and digital levels on the right, and moderate to severe arterial occlusive disease at the ankle and digital levels on the left. Venous studies of the bilateral lower extremities from 07/21/2021 were unremarkable. July 21, 2021 luna For Study: Non healing wound Procedure A bilateral lower extremity continuous wave Doppler with analog waveform analysis,segmental pressures,and ankle brachial indexes without exercise. Left Segmental Pressures Left brachial= 138mmHg. Left calf = 80mmHg. Left posterior tibial artery = 87 mmHg. Left dorsalis pedis artery = 84mmHg. Left digit = 41 mmHg. The left dorsalis pedis waveforms are monophasic. The left posterior tibial artery waveforms are monophasic. Right Segmental Pressures Right brachial= 151mmHg. Right thigh = 186mmHg. Right calf = 124mmHg. Right posterior tibial artery = 119mmHg. Right dorsalis pedis artery = 106mmHg. Right digit = 95 mmHg. The right dorsalis pedis waveforms are biphasic. The right posterior tibial artery waveforms are biphasic. Indices The right ankle brachial index by the dorsalis pedis is 0.70. The right ankle brachial index by the posterior tibial artery is 0.79. The right digital-brachial index is 0.63. The left ankle brachial index by the dorsalis pedis is 0.56. The left ankle brachial index by the posterior tibial artery is 0.58. The left digital-brachial index is 0.27. VL/Lower Ext Art Exam w/o Exercis Interpretation Summary Biphasic Doppler waveforms are noted at ankle level on the right. Monophasic Doppler waveforms are noted at ankle level on the left. Pulse-volume recordings appear diminished at ankle and digital levels bilaterally. The resting right ankle-brachial index is mildly diminished. The resting left ankle-brachial index is moderately diminished. The right digital-brachial index is mildly diminished. The left digital-brachial index is moderately to severely diminished. ? There is evidence of mild arterial occlusive disease at ankle and digital levels on the right. There is evidence of [id number] arterial occlusive disease at ankle and digital levels on the left. ? Ordering Physician: Divya Louis Referring Physician: Sylvia Aleman Performed By: Shy Gifford RVT 07/21/21 2220Date Tony Odom MD Laboratory as of July 02, 2021 demonstrated white count of 7.2 with a hemoglobin of 15.5 and hematocrit 45.9 with a platelet count of 158,000. BUN is 17 creatinine 1.06 with a glucose at that time of 234.? Liver function tests were normal.? Albumin level was 3.6 with a prealbumin level 23.6.? Hemoglobin A1c was not obtained ROS General General: Yes fatigue; No weight change, appetite, colon cancer, breast cancer or weakness HEENT HEENT: No difficulty swallowing, eye injury, eye surgery, swollen glands or hoarseness Endo Endocrine: Yes diabetes mellitus; No thyroid disease, thyroid cancer, Hair loss, heat intolerance or cold intolerance Skin Skin: No rash or changing moles Breast Breast: No left breast lump, right breast lump, nipple discharge, breast pain, abnormal mammogram, abnormal US or breast enlargement Musc Musculoskeletal: Yes back problems and arthritis; No rheumatoid arthritis, gout or joint pain Cardio Cardiovascular: No murmur, pacemaker, heart disease, atrial fibrillation, high blood pressure, heart attack, heart stent, palpitations, shortness of breat with exertion or chest pain Psych Psychiatric: No depression, anxiety or hearing voices Resp Respiratory: Yes shortness of breath, Yes sleep apnea, Yes cough, Yes COPD, No asthma, No emphysema and No wheezing Gastro Gastrointestinal: No abdominal pain, No nausea or vomiting, No diarrhea, No c onstipation, No blood in stool, No acid reflux, No hemorrhoids, No ulcers, No gallbladder problem and No black,tarry stools Jimmie Hematologic: Yes blood thinners, No blood disorders, No bleeding, No anemia and No blood clots Neuro Neurologic: No system reviewed and no additional complaints, except as documented, No as per HPI, No abnormal gait, No abnormal hearing, No abnormal movements, No abnormal speech, No behavioral changes, No burning sensations, No confusion, No convulsions, No disequilibrium, No dizziness, No localized weakness, No frequent falls, No headache(s), No lack of coordination, No loss of vision, No memory loss, Yes numbness, No other visual disturbances, No radicular pain, No restless legs, No sensory deficit, No syncope, Yes tingling, No tremor(s), No weakness and No other Exam Const General: cooperative and no acute distress Nutritional Appearance: obese Orientation: alert, awake and oriented x3 HENMT Head: normal to inspection Eyes General: appearance normal, both eyes and all related structures Neck Carotids: normal carotid upstroke and no bruits Other: Well-healed right carotid incision.? 3+ bilateral carotid pulses. Chest Other: Notably increased AP diameter Resp Other: Diminished respiratory excursion.? Clear Cardio Rate: regular rate Rhythm: regular rhythm Other: Bilateral radials 3+.? Left bilateral brachials 3+.? Bilateral carotids 3+. Bilateral femorals 3+.? Right popliteal 2+.? Right DP and PT difficult to palpate.? Left popliteal DP and PT not palpable GI Other: Overweight, I am not able to detect internal organs, normal bowel sounds Musc Other: Mild cervical kyphosis Skin Other: Dressing in place left lateral malleolus Neuro Other: Diminished bilateral foot light touch sensation Extrem Other: The edition left lateral malleolus Dependent rubor more marked on the left than the right.? Both his toes.? Diminished capillary refill. 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 Hamlet Caballero MD: I recommended the patient a abdominal pelvic left lower extremity urogram with retrograde access via the right common femoral artery.? In detail of discussed technique, benefit, risk of alternatives.? The patient may have a very difficult approach secondary to his history of atherectomy and subsequent stenting of the superficial femoral artery.? He is aware that I may have difficulty with an en dovascular approach gaining access back through this area.? He does have a chronically ischemic left foot.? I have instructed him believe he is at risk for limb loss.? Detailed images of the left lower extremity would want to be pursued.? His renal function appears stable. He has been vigorously encouraged to cease his tobacco use.? He has been smoking for at least 50 years and most of that at 2 packs/day. He has had an opportunity to ask and have questions answered.? He will continue on his low-dose aspirin therapy as well as his insulin.? He is also on simvastatin. I appreciate the opportunity assist with the surgical care Copy: Dr. Sylvia Aleman and Divya Louis, COURTNEY-Joan Caballero M.D., F.A.C.S I have re-examined the patient. There are no clinical changes since date of ex am. Hamlet Caballero M.D., F.A.C.S.
--- NOTE | 2021-09-13 09:53 | PCM.OPRPT ---
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 61-year-old gentleman was taken to the special procedures lab placed upon the table. Throughout the procedure in aliquots he received a total of 50 mcg of fentanyl and 2 mg of Versed is intravenous sedation. Bilateral groins were sterilely prepped and draped. Ultrasound was used to identify the right common femoral artery. Under ultrasound guidance 8 cc of 2% lidocaine was instilled. Then under ultrasound guidance a micropuncture needle was inserted into the anterior wall of the right common femoral artery followed by Seldinger wire advancement micropuncture sheath 035 J-wire and a 5 [place] short sheath dilator. Using an angled Glidewire 5 [place] universal flush catheter was placed in the distal abdominal aorta. 10 cc a second for 10 cc of Visipaque was used to obtain a AP aortogram. I then used a Glidewire to advance the flush catheter into the left common femoral artery. Static views of the left lower extremity were subsequently obtained. Having achieved that I then placed a Magic wire and exchanged the 5 [place] 4 6 and sheath. I then attempted to use a angled Glidewire with a .035 quick cross catheter and then a stiff angled Glidewire with an 035 quick cross catheter but was unable to get passage through the occluded left superficial femoral artery stent. I then withdrew the sheath to the right external iliac and I obtained static views of the right lower extremity. I then deployed a Perclose device in the right groin getting complete immediate hemostasis. Bilateral lower extremities inspected and unchanged from preprocedure. Blood loss was minimal. The abdominal aorta is diffusely diseased as are bilateral common iliacs and external iliacs. Bilateral internal iliacs are patent. The left superficial femoral artery is occluded with a small nubbin of a Mohan seen. The profundofemoral was patent on the left though with diffuse disease. The superficial femoral artery reappears distal to the long superficial femoral artery stent in the left popliteal is patent. The left anterior tibial and posterior tibial vessels are occluded with the peroneal being diffusely diseased but patent down to the ankle Right lower extremity demonstrates patent superficial femoral artery and profundofemoral. The popliteals patent on the right. Infrageniculate on the right the tibioperoneal trunk occludes in the anterior tibial is occluded. The right posterior tibial and peroneal appear to reappear in the proximal third of the lower extremity and they are diminutive blood flow to the ankle. It is of note that there was some air insufflation on the last run seemingly secondary to the addition of more dye to the power injector. Patient remained asymptomatic The patient might be a future candidate for a left above-knee femoral-popliteal bypass with single-vessel peroneal runoff. The right lower extremity would require a femoral to infrageniculate single-vessel runoff unless a endovascular procedure could be utilized to recannulate the right tibioperoneal trunk but that was not attempted today. Specimens none. Drains none. Blood loss minimal. Contrast used 40 cc Hamlet Caballero M.D., F.A.C.S. Surgeon: Hamlet Caballero
[2021-09-13] MEDS: 0.9% Normal Saline 1,000 ML 100 ML IV (10:30)
== END 2021-09-13 13:30 | disposition home or self-care (01) ==
LOC: CLSP 07:32 → ICU 09:51
PROVIDERS: PCP Internal Medicine; Referring Provider Surgery; Visit Provider Surgery
DX: E11.621 Type 2 diabetes mellitus with foot ulcer (principal); E11.51 Type 2 diabetes mellitus with diabetic peripheral angiopathy without gangrene; L97.522 Non-pressure chronic ulcer of other part of left foot with fat layer exposed; Z79.4 Long term (current) use of insulin; F17.200 Nicotine dependence, unspecified, uncomplicated; G47.30 Sleep apnea, unspecified; E66.9 Obesity, unspecified; M79.89 Other specified soft tissue disorders; Z79.82 Long term (current) use of aspirin; Z79.899 Other long term (current) drug therapy; Z86.73 Personal history of transient ischemic attack (TIA), and cerebral infarction without residual deficits
CPT/HCPCS: 36200; 36245; 36246; 36415; 75625; 75716; 76937; 80048; 85027; 99152; 99153; J7030; J7040; Q9967; C1760; C1769; C1887; C1894

== ENCOUNTER → 2021-12-23 | Outpatient (CLI) | payer MEDICARE, SELFPAY ==
--- NOTE | 2021-12-23 09:59 | CDU_ITS ---
Reason For Study: Carotid stenosis Rt. Velocities/BP Lt. Velocities/BP Prox CCA 79.6/15.4 cm/sec. Prox CCA 85/16.8 cm/sec. Mid CCA 60.7/14.5 cm/sec. Mid CCA 67.4/13.5 cm/sec. Dist CCA 55.1/13.5 cm/sec. Dist CCA 76.2/22.3 cm/sec. Prox ICA 49.5/10.2 cm/sec. Prox ICA 58.6/14.6 cm/sec. Mid ICA 74/20 cm/sec. Mid ICA 74/23.4 cm/sec. Dist ICA 77.7/22.5 cm/sec. Dist ICA 79.5/26.7 cm/sec. Rt. ICA/CCA = 1.28. Lt. ICA/CCA = 1.04. Prox ECA 109.7/13.9 cm/sec. Prox ECA 104.7/10.2 cm/sec. Rt. Vert. 27/9.2 cm/sec. Lt. Vert. 27.3/8.1 cm/sec. Right Extracranial There is homogeneous, irregular atherosclerotic plaque noted in the right common carotid artery. There is homogeneous, smooth atherosclerotic plaque noted in the right internal carotid artery. There is intimal thickening but no significant atherosclerotic plaque noted in the right external carotid artery. Antegrade flow is noted in the right vertebral artery. Left Extracranial There is intimal thickening but no significant atherosclerotic plaque noted in the left common carotid artery. There is heterogeneous, irregular atherosclerotic plaque noted in the left internal carotid artery. There is intimal thickening but no significant atherosclerotic plaque noted in the left external carotid artery. Antegrade flow is noted in the left vertebral artery. Procedure Carotid Duplex 92472. This is a Carotid Duplex examination using B-mode, color flow and specral Doppler. Exam performed in department. VL/Carotid Duplex Ultrasound Interpretation Summary Mild (<50%) stenosis right extracranial internal carotid. Mild (<50%) stenosis left extracranial internal carotid. Patent and antegrade vertebrals bilaterally. Ordering Physician: Enrrique Archibald Referring Physician: Sylvia Aleman Performed By: Shy Gifford RVT
== END | disposition home or self-care (01) ==
PROVIDERS: PCP Internal Medicine; Referring Provider Surgery Trauma Surgery; Visit Provider Surgery Trauma Surgery
DX: I65.23 Occlusion and stenosis of bilateral carotid arteries (principal); R55 Syncope and collapse
CPT/HCPCS: 93880

== ENCOUNTER → 2023-01-24 | Outpatient (CLI) | payer MEDICARE, SELFPAY ==
--- NOTE | 2023-01-24 13:43 | ART_ITS ---
Reason For Study: PVD Procedure A bilateral lower extremity continuous wave Doppler with analog waveform analysis,segmental pressures,and ankle brachial indexes without exercise. Left Segmental Pressures Left brachial= 110mmHg. Left calf = 75mmHg. Left posterior tibial artery = 67mmHg. Left dorsalis pedis artery = 49mmHg. The left dorsalis pedis waveforms are monophasic. The left posterior tibial artery waveforms are monophasic. Right Segmental Pressures Right brachial= 115mmHg. Right thigh = 156mmHg. Right calf = 83mmHg. Right posterior tibial artery = 86mmHg. Right dorsalis pedis artery = 82mmHg. Right digit = 55 mmHg. The right dorsalis pedis waveforms are biphasic. The right posterior tibial artery waveforms are biphasic. Indices The right ankle brachial index by the dorsalis pedis is 0.71. The right ankle brachial index by the posterior tibial artery is 0.75. The right digital-brachial index is 0.48. The left ankle brachial index by the dorsalis pedis is 0.57. The left ankle brachial index by the posterior tibial artery is 0.58. The left digital-brachial index is 0.43. VL/Lower Ext Art Exam w/o Exercis Interpretation Summary Right ELIANA 0.75, moderate arterial insufficiency. Doppler/PVR waveforms and segm ental pressures reveal distal SFA/popliteal disease Left ELIANA 0.58, moderate arterial insufficiency. Doppler/PVR waveforms and segme ntal pressures reveal distal SFA/popliteal disease Ordering Physician: Shanta Gutierrez Referring Physician: Sylvia Aleman Performed By: Shy Gifford RVT
== END | disposition home or self-care (01) ==
LOC: CVS 13:41
PROVIDERS: PCP Internal Medicine; Referring Provider Physician Assistant; Visit Provider Physician Assistant
DX: I73.9 Peripheral vascular disease, unspecified (principal)
CPT/HCPCS: 93923

== ENCOUNTER → 2024-02-02 | Outpatient (CLI) | payer MEDICARE, SELFPAY | END | disposition home or self-care (01) | LOC: CVS 13:50 | PROVIDERS: PCP Internal Medicine; Referring Provider Physician Assistant; Visit Provider Physician Assistant | DX: I73.9 Peripheral vascular disease, unspecified (principal); I65.23 Occlusion and stenosis of bilateral carotid arteries | CPT/HCPCS: 93880; 93923 ==